=== PATIENT | female | born 1980 | race Caucasian/White ===

== ENCOUNTER 2017-03-30 10:34 | Observation (INO) ==
[2017-03-30] MEDS ORDERED: Nitroglycerin 0.4 MG TAB.SUBL SL ONE (11:06)
[2017-03-30] MEDS ORDERED: Aspirin 81 MG TAB.CHEW PO ONE (11:06)
[2017-03-30 11:28] LABS: Basophils # 0.1 K/mcL (0.0-0.2); Basophils % 1.3 %; Eosinophils # 0.1 K/mcL (0.0-0.6); Eosinophils % 1.6 %; Hematocrit 45.3 % (35.3-44.9); Hemoglobin 15.7 g/dL (11.5-15.4); Immature Granulocytes % 0.1 % (0-4); Lymphocytes # 1.9 K/mcL (0.6-4.6); Lymphocytes % 27.1 %; Mean Corpuscular HGB Conc 34.7 g/dL (31.6-35.5); Mean Corpuscular Hemoglobin 29.8 pg (28.0-33.3); Mean Corpuscular Volume 86.1 fL (83.0-100.0); Mean Platelet Volume 11.4 fL (9.4-12.4); Monocytes # 0.4 K/mcL (0.0-1.3); Monocytes % 6.5 %; Neutrophils # 4.3 K/mcL (1.6-8.9); Platelet Count 264 K/mcL (140-400); Red Blood Count 5.26 M/mcL (3.82-4.97); Red Cell Distribution Width 12.1 % (11.5-14.5); Segmented Neutrophils % 63.4 %
[2017-03-30 11:36] LABS: INR 1.1; Prothrombin Time 11.7 Seconds (9.4-12.1)
[2017-03-30 11:38] LABS: Activated Partial Thrombo Time 28.5 Seconds (26.0-36.0)
[2017-03-30] MEDS ORDERED: 0.9 % Sodium Chloride 500 ML ONE (11:41)
[2017-03-30 11:43] LABS: BUN/Creatinine Ratio 14 (6-26); Blood Urea Nitrogen 13 mg/dL (6-20); Calcium 9.7 mg/dL (8.6-10.3); Carbon Dioxide 26 mEq/L (23-29); Chloride 99 mEq/L (98-107); Glucose 422 mg/dL (70-105); Osmolality,Calculated 292 (280-300); Sodium 132 mEq/L (136-145); eGFR For African Americans > 60 (> 60); eGFR For Non-African Americans > 60 (> 60)
[2017-03-30] MEDS ORDERED: Insulin Regular, Human 100 UNIT/ML IV ONE (12:02)
[2017-03-30] MEDS ORDERED: Insulin Regular, Human 100 UNIT/ML SQ ONE (12:02)
--- NOTE | 2017-03-30 12:02 | Emergency Department Note ---
Disposition Clinical Impression: Chest pain of uncertain etiology Disposition: Admitted As Inpatient Condition: Good Time of Disposition: 12:48 Chest Pain HPI - General Chief Complaint: ED Chest Pain Stated Complaint: CP from shoveling snow Time Seen by Provider: 03/30/17 10:44 Source: patient Limitations: no limitations Vital Signs Reviewed: Yes Nursing Notes Reviewed: Yes - History of Present Illness HPI Narrative: Ms. Lnudberg, 36-year-old female, presents from home for evaluation of chest pain. Described as a substernal squeezing her heart with radiation to her right scapula. She had associated diaphoresis and mild dyspnea. This occurred while she was clearing snow from her car. Onset was 8:30 this morning and persisted until evaluation in this department. Worse with light exertion. At home, she attempted to ignore her symptoms. She spoke with her father who is a mounter clarinets who advised she come to the emergency department for evaluation. PMH: Type 1 diabetes, diagnosed 20 years ago, on insulin pump. Poorly controlled blood glucose with range from 50-500; she is a brittle diabetic. Habits: Current every day smoker Family history: Father had PR in his early 40s with specifics unknown to the patient. ROS: Positive: As above Negative: Fever, chills, nausea, vomiting, abdominal pain, headache, jaw pain, upper extremity weakness or tingling Severity scale (1-10): 0 - Related Data Home Medications Medication Instructions Recorded Confirmed Insulin Pump/Infus. Set/Meter 1 each MC AD 07/20/15 03/30/17 [Accu-Chek Combo System] Levothyroxine Sodium [Synthroid] 137 mcg PO DAILY 07/20/15 03/30/17 Adapalene [Adapalene] 1 appl TP AD 03/30/17 03/30/17 Cholecalciferol (D-3) [Vitamin D] 1,000 unit PO DAILY 03/30/17 03/30/17 Escitalopram [Lexapro] 10 mg PO DAILY 03/30/17 03/30/17 Minocycline HCl [Minocin] 100 mg PO DAILY 03/30/17 03/30/17 Allergies Allergy/AdvReac Type Severity Reaction Status Date / Time codeine Allergy Anxiety Verified 12/01/16 09:44 All systems ED: reviewed and negative except as stated. Review of Systems: As Per HPI Chest Pain PMH - Past Medical History Medical history: Reports: diabetes, renal disease, thyroid disease Surgical history: Reports: , other Psychiatric history: Reports: anxiety, depression - Social History Smoking Status: Current every day smoker Alcohol use: Reports: none Drug use: Reports: none Physical Exam Vital Signs Reviewed General: Patient is alert, oriented, and in no acute distress. HEENT: No facial asymmetry. Head is normocephalic and atraumatic. PERRLA, EOMI. oral mucosa moist. Trachea midline. Cardiovascular: Heart regular rate and rhythm without clicks, rubs, gallops, or murmurs. No JVD. PMI nondisplaced. Lateral radial pulses and posterior tibial pulses 2/4. No pedal edema. Respiratory: Symmetric chest rise with good respiratory effort. Bilateral breath sounds are clear without wheezing, crackles, or rhonchi. Abdomen: Bowel sounds present normoactive x-4 quadrants. Abdomen is soft, nondistended, and nontender. No organomegaly noted. Musculoskeletal: Spontaneously moving all chimneys. Neuro: Alert and oriented 4. Sensation light touch intact. Skin: Warm, dry, intact. Psych: Patient's affect is appropriate for situation. - General Limitations: no limitations General appearance: alert, in no apparent distress Course Course Narrative: Patient's symptoms are concerning in the context of her poorly controlled long- standing type 1 diabetes, chronic smoker, and paternal cardiac history. Her chest pain improved from 09/19-03/22 with subungual nitroglycerin 3. EKG unremarkable for acute ischemic changes. Initial troponin is normal however this was collected approximately 2.5 hours from onset of symptoms. I discussed my concerns with the patient and detailed her cardiac risk factors. She is in agreement to coming into the hospital to rule out acute coronary syndrome. Vital Signs Temperature 98.5 F 03/30/17 10:38 Pulse Rate 101 03/30/17 10:38 Respiratory Rate 18 03/30/17 10:38 Blood Pressure 129/87 03/30/17 10:38 O2 Sat by Pulse Oximetry 100 03/30/17 10:38 Temperature 98.5 F 03/30/17 10:38 Pulse Rate 78 03/30/17 12:11 Respiratory Rate 20 03/30/17 14:01 Blood Pressure 116/79 03/30/17 14:01 O2 Sat by Pulse Oximetry 98 03/30/17 12:11 Oxygen Delivery Oxygen Delivery Room Air Chest Pain - Medical Records Medical records reviewed: Yes I reviewed the patient's medical records. - Lab Data Lab results reviewed: Yes I reviewed the patient's lab results. Result diagrams: 03/30/17 11:20 03/30/17 11:20 Lab Results 03/30/17 03/30/17 03/30/17 Range/Units 11:20 11:20 11:20 WBC 6.8 (4.3-11.1) K/mcL RBC 5.26 H (3.82-4.97) M/mcL Hgb 15.7 H (11.5-15.4) g/dL Hct 45.3 H (35.3-44.9) % MCV 86.1 (83.0-100.0) fL MCH 29.8 (28.0-33.3) pg MCHC 34.7 (31.6-35.5) g/dL RDW 12.1 (11.5-14.5) % Plt Count 264 (140-400) K/mcL MPV 11.4 (9.4-12.4) fL Immature Gran % 0.1 (0-4) % Seg Neutrophils % 63.4 % Lymphocytes % 27.1 % Monocytes % 6.5 % Eosinophils % 1.6 % Basophils % 1.3 % Neutrophils # 4.3 (1.6-8.9) K/mcL Lymphocytes # 1.9 (0.6-4.6) K/mcL Monocytes # 0.4 (0.0-1.3) K/mcL Eosinophils # 0.1 (0.0-0.6) K/mcL Basophils # 0.1 (0.0-0.2) K/mcL PT (9.4-12.1) Seconds INR APTT (26.0-36.0) Seconds Sodium 132 L (136-145) mEq/L Potassium 4.0 (3.5-5.1) mEq/L Chloride 99 (98-107) mEq/L Carbon Dioxide 26 (23-29) mEq/L BUN 13 (6-20) mg/dL Creatinine 0.93 (0.60-1.20) mg/dL Est GFR ( Amer) > 60 (> 60) Est GFR (Non-Af Amer) > 60 (> 60) BUN/Creatinine Ratio 14 (6-26) Glucose 422 H (70-105) mg/dL Calculated Osmolality 292 (280-300) Calcium 9.7 (8.6-10.3) mg/dL Troponin I < 0.03 (< 0.04) ng/mL 03/30/17 Range/Units 11:25 WBC (4.3-11.1) K/mcL RBC (3.82-4.97) M/mcL Hgb (11.5-15.4) g/dL Hct (35.3-44.9) % MCV (83.0-100.0) fL MCH (28.0-33.3) pg MCHC (31.6-35.5) g/dL RDW (11.5-14.5) % Plt Count (140-400) K/mcL MPV (9.4-12.4) fL Immature Gran % (0-4) % Seg Neutrophils % % Lymphocytes % % Monocytes % % Eosinophils % % Basophils % % Neutrophils # (1.6-8.9) K/mcL Lymphocytes # (0.6-4.6) K/mcL Monocytes # (0.0-1.3) K/mcL Eosinophils # (0.0-0.6) K/mcL Basophils # (0.0-0.2) K/mcL PT 11.7 (9.4-12.1) Seconds INR 1.1 APTT 28.5 (26.0-36.0) Seconds Sodium (136-145) mEq/L Potassium (3.5-5.1) mEq/L Chloride (98-107) mEq/L Carbon Dioxide (23-29) mEq/L BUN (6-20) mg/dL Creatinine (0.60-1.20) mg/dL Est GFR ( Amer) (> 60) Est GFR (Non-Af Amer) (> 60) BUN/Creatinine Ratio (6-26) Glucose (70-105) mg/dL Calculated Osmolality (280-300) Calcium (8.6-10.3) mg/dL Troponin I (< 0.04) ng/mL - Radiology Data Radiology results reviewed: Yes I reviewed the patient's radiology results. - EKG Data EKG attestation: Yes I reviewed and interpreted this EKG. EKG results narrative: EKG dated 03/30/17 at 10:47 as sinus rhythm with a rate of 90. Normal intervals. Normal axis. Nonspecific ST T changes. No previous EKG for comparison. Heart Score - Score History: Moderately Suspicious EKG: Non Specific repolarisation Disturbance Age: Less than 45 Risk Factors: Equal/Greater than 3 risk factor or history of atherosclerotic disease Troponin: Less than normal limit HEART Score Total: 4 Attestation Statement - Attestation Attestation: I examined this patient and my medical decision-making was reviewed with the Resident Physician. I agree with the documented findings, disposition and treatment plan as described except to the extent set forth below. 36-year-old female presents to the emergency room because of substernal chest discomfort. At 8:30 this morning she developed abrupt onset of substernal chest discomfort with radiation to her right shoulder. With this she had diaphoresis, nausea and dyspnea. Symptoms improved at rest but worsened sharply she will try to exert. She presents to the ED 2-1/2 hours after onset. Symptoms are still present minus the diaphoresis. She is a poorly controlled diabetic and smokes at least a pack seizure today. Family history significant for father having a myocardial infarction when he was 40 years old. Generally well-appearing female in no apparent physiologic distress. Oropharynx clear, mucous membranes moist. Neck is supple, trachea midline, no JVD. Chest is clear to auscultation bilaterally. Cardiac exam regular without rubs or gallops. Chest wall nontender. Abdomen is soft, nondistended and nontender. Present EKG was unremarkable. Initial metabolic workup including troponin was normal. She was given sublingual nitroglycerin glycerin with resolution of her pain. Given the spectrum of symptoms in addition to her risk factors, she will be admitted for further workup.
--- NOTE | 2017-03-30 14:02 | Internal Med History&Physical ---
Date of Encounter: 03/30/17 Time of Encounter: 14:00 Assessment and Plan (1) Chest pain Current visit: Yes Status: Acute Patient has risk factors for coronary disease including type I diabetes and positive family history. Will admit patient to rule out acute coronary syndrome. Electrocardiogram shows no ST segment shifts. Initial troponin normal. Trend troponin. Start patient and aspirin. Appreciate cardiology input. Qualifiers: Qualified Code(s): R07.9 - Chest pain, unspecified (2) Diabetes mellitus type 1 Current visit: Yes Status: Acute Continue insulin pump. Sugars uncontrolled. Check hemoglobin A-1 C in the morning. Qualifiers: Qualified Code(s): E10.9 - Type 1 diabetes mellitus without complications Internal Medicine - H&P: HPI Chief complaint: chest pain History of present illness: Ms. Lundberg is a 36 year old female with history of type I diabetes mellitus presents to emergency room today with the main complaint of chest pain. Since this morning after the patient was shoveling snow she started experiencing retrosternal chest pain that lasted for several hours so presented to emergency room. She has noticed that pain would improve with sublingual nitroglycerin. She continued to have minimal chest pain during my interview which she rates 1/ 10. Patient denies any prior similar symptoms. Past Med Surg Social Fam HX - Past Medical History Medical history: diabetes, renal disease, thyroid disease Psychiatric history: anxiety, depression - Past Surgical History Surgical History: , other - Social History Smoking Status: Current every day smoker Smokeless Tobacco Status: No Alcohol use: none Drug use: none Internal Medicine - H&P: Meds Insulin Pump/Infus. Set/Meter [Accu-Chek Combo System] 1 each MC AD 07/20/15 [ History] Levothyroxine Sodium [Synthroid] 137 mcg PO DAILY 07/20/15 [History] Adapalene [Adapalene] 1 appl TP AD 03/30/17 [History] Cholecalciferol (D-3) [Vitamin D] 1,000 unit PO DAILY 03/30/17 [History] Escitalopram [Lexapro] 10 mg PO DAILY 03/30/17 [History] Minocycline HCl [Minocin] 100 mg PO DAILY 03/30/17 [History] 3 Allergy/AdvReac Type Severity Reaction Status Date / Time codeine Allergy Anxiety Verified 12/01/16 09:44 All Systems PM: A 10-system review of systems was performed and is negative for pertinent findings except as documented above in the HPI. Review of systems: 10 point review of systems is negative except for HPI - Constitutional Vitals: Temp Pulse Resp BP Pulse Ox 98.5 F 78 12 118/79 98 03/30/17 10:38 03/30/17 12:11 03/30/17 12:11 03/30/17 12:11 03/30/17 12:11 Exam: Gen.: patient is alert oriented times 3 not in distress. Cardiac: normal S1 S2 no additional sounds are murmurs. Chest: clear to auscultation. Abdomen: soft nontender nondistended. Lower extremity no swelling mucous membranes: moist Internal Med - H&P Results - Labs CBC & Chem 7: 03/30/17 11:20 03/30/17 11:20
[2017-03-30] MEDS: INSULIN PUMP MC SCH (17:49)
[2017-03-30] MEDS: INFUS SET MC SCH (17:49)
[2017-03-30] MEDS: Nicotine 14 MG PATCH.TD24 TD SCH (17:50)
[2017-03-30] MEDS: Famotidine 20 MG TABLET PO SCH (21:09)
[2017-03-30] MEDS ORDERED: Acetaminophen 325 MG TABLET PO PRN (21:35)
[2017-03-30] MEDS: ADAPALENE TP SCH (22:41)
[2017-03-31 00:40] LABS: Basophils # 0.1 K/mcL (0.0-0.2); Basophils % 1.6 %; Eosinophils # 0.2 K/mcL (0.0-0.6); Eosinophils % 3.1 %; Hematocrit 37.7 % (35.3-44.9); Immature Granulocytes % 0.1 % (0-4); Lymphocytes # 3.9 K/mcL (0.6-4.6); Lymphocytes % 55.8 %; Mean Corpuscular Hemoglobin 29.8 pg (28.0-33.3); Mean Corpuscular Volume 87.9 fL (83.0-100.0); Mean Platelet Volume 11.8 fL (9.4-12.4); Monocytes # 0.4 K/mcL (0.0-1.3); Monocytes % 5.5 %; Neutrophils # 2.4 K/mcL (1.6-8.9); Platelet Count 240 K/mcL (140-400); Red Blood Count 4.29 M/mcL (3.82-4.97); Red Cell Distribution Width 12.1 % (11.5-14.5); Segmented Neutrophils % 33.9 %
[2017-03-31 00:47] LABS: Hemoglobin A1C 12.1 %
[2017-03-31 01:03] LABS: Chol/HDL Ratio 3.6 (0-4.9)
[2017-03-31 01:04] LABS: BUN/Creatinine Ratio 14 (6-26); Blood Urea Nitrogen 13 mg/dL (6-20); Calcium 9.1 mg/dL (8.6-10.3); Carbon Dioxide 27 mEq/L (23-29); Chloride 101 mEq/L (98-107); Glucose 280 mg/dL (70-105); Magnesium 1.7 mg/dL (1.6-2.6); Osmolality,Calculated 284 (280-300); Potassium 3.9 mEq/L (3.5-5.1); Sodium 132 mEq/L (136-145); eGFR For African Americans > 60 (> 60); eGFR For Non-African Americans > 60 (> 60)
[2017-03-31 01:08] LABS: Hemoglobin 12.8 g/dL (11.5-15.4)
[2017-03-31] MEDS: *HR* Enoxaparin 40 MG/0.4 ML SYRINGE SQ SCH (06:07)
--- NOTE | 2017-03-31 07:39 | Electrocardiograph Report ---
Wayland Mersimo Test Date: 2017-03-30 Pat Name: Miroslava Lundberg Department: 102 Room: [facility] Gender: F Dress Cap Maker: : 1980 Requested By: Elvis Redding Order Number: [id number] Reading MD: Kate Pimentel DO Measurements Intervals [place] Rate: 90 P: 50 NC: 130 QRS: 8 QRSD: 85 T: 40 QT: 336 QTc: 384 Interpretive Statements SINUS RHYTHM Electronically Signed On 03-31-2017 7:37:23 EST by Kate Pimentel DO
[2017-03-31] MEDS: Nicotine 14 MG PATCH.TD24 TD SCH ×2 (07:56→17:26)
[2017-03-31] MEDS: Cholecalciferol (D-3) 1,000 UNIT TABLET PO SCH (07:58)
[2017-03-31] MEDS: Famotidine 20 MG TABLET PO SCH ×2 (07:58→20:15)
[2017-03-31] MEDS ORDERED: D5% in Water 1,000 ML IVC PRN (08:48)
[2017-03-31] MEDS ORDERED: Dextrose Gel 15 GM/37.5 ML TUBE PO PRN ×2 (08:48)
[2017-03-31] MEDS ORDERED: *HR* Dextrose 50 % in Water (Syg) 50 ML SYRINGE IVP PRN (08:48)
[2017-03-31] MEDS ORDERED: Aspirin 325 MG TABLET PO SCH (09:00)
--- NOTE | 2017-03-31 09:27 | Internal Med Progress Note ---
<JohnsonJames - Last Filed: 03/31/17 14:02> Date of Encounter: 03/31/17 Time of Encounter: 09:24 - Assessment and plan (1) Chest pain Current Visit: Yes Status: Acute Assessment and plan: No changes on ECG. Troponin levels not elevated. Likely not cardiac in origin, but patient did have typical symptoms of substernal chest pain worse with exertion and relieved with nitro Stress test and echocardiogram pending Qualifiers: Chest pain type: other chest pain Qualified Code(s): R07.89 - Other chest pain; R07.8 - Other chest pain (2) Diabetes mellitus type 1 Current Visit: Yes Status: Chronic Assessment and plan: A1c of 12, despite having insulin pump medium dose sliding scale insulin added for glucose control Follow with PCP on discharge for glycemic control Qualifiers: Diabetes mellitus complication status: with hyperglycemia Qualified Code(s) : E10.65 - Type 1 diabetes mellitus with hyperglycemia (3) Hypothyroidism Current Visit: Yes Status: Chronic Assessment and plan: Continue with Levothyroxine as prescribed Qualifiers: Qualified Code(s): E03.9 - Hypothyroidism, unspecified (4) Tobacco abuse Current Visit: Yes Status: Chronic Assessment and plan: Tobacco cessation counseling offered. (5) DVT prophylaxis Current Visit: Yes Status: Acute Assessment and plan: Lovenox SQ - Subjective Interval history: Patient is resting comfortably in her bed. She states that she feels much better than yesterday and that her chest pain is now down to a 1-2/10 and that her right subscapular pain is a 4/10. She states that she is comfortable and wants to know if she will have a stress test done. - Constitutional Vitals: Temp Pulse Resp BP Pulse Ox 98.3 F 78 16 97/63 98 03/31/17 06:35 03/31/17 06:35 03/31/17 06:35 03/31/17 06:35 03/31/17 08:01 General appearance: Present: cooperative, A&O X 3, pleasant, no acute distress, answers questions appropriately - Head Head exam: Present: normal inspection - Respiratory Respiratory exam: Present: CTAB - Cardiovascular Cardiovascular exam: Present: RRR, +S1, +S2. Absent: diastolic murmur, gallop, rubs, systolic murmur - GI/Abdominal GI/Abdominal exam: Present: soft. Absent: distended, firm, guarding, tenderness - Back Exam Back exam: Present: normal inspection, tenderness (Mild tenderness to paplapation of right subscapular region) Internal Medicine: Result - Labs CBC & Chem 7: 03/31/17 00:11 03/31/17 00:11 Labs: Short CBC 03/31/17 Range/Units 00:11 WBC 7.0 (4.3-11.1) K/mcL Hgb 12.8 D (11.5-15.4) g/dL Hct 37.7 (35.3-44.9) % Plt Count 240 (140-400) K/mcL Neutrophils # 2.4 (1.6-8.9) K/mcL BMP 03/31/17 00:11 Sodium 132 L Potassium 3.9 Chloride 101 Carbon Dioxide 27 BUN 13 Creatinine 0.90 Glucose 280 H Calcium 9.1 Cardiac Enzymes 03/30/17 03/31/17 Range/Units 17:19 00:11 Troponin I < 0.03 < 0.03 (< 0.04) ng/mL - ABG Interpretation ABG results: PT/INR, D-dimer PT 11.7 Seconds (9.4-12.1) 03/30/17 11:25 Consult Discharge Plan - Plan Referrals: Tiago Hall Jr, MD [Primary Care Provider] - <Salomón Cali - Last Filed: 03/31/17 18:11> Date of Encounter: 03/31/17 - Constitutional Vitals: Temp Pulse Resp BP Pulse Ox 98 F 76 18 105/70 99 03/31/17 16:37 03/31/17 16:37 03/31/17 16:37 03/31/17 16:37 03/31/17 16:37 Internal Medicine: Result - Labs CBC & Chem 7: 03/31/17 00:11 03/31/17 00:11 Labs: Short CBC 03/31/17 Range/Units 00:11 WBC 7.0 (4.3-11.1) K/mcL Hgb 12.8 D (11.5-15.4) g/dL Hct 37.7 (35.3-44.9) % Plt Count 240 (140-400) K/mcL Neutrophils # 2.4 (1.6-8.9) K/mcL BMP 03/31/17 00:11 Sodium 132 L Potassium 3.9 Chloride 101 Carbon Dioxide 27 BUN 13 Creatinine 0.90 Glucose 280 H Calcium 9.1 Cardiac Enzymes 03/31/17 Range/Units 00:11 Troponin I < 0.03 (< 0.04) ng/mL - ABG Interpretation ABG results: PT/INR, D-dimer PT 11.7 Seconds (9.4-12.1) 03/30/17 11:25 - Attending Attestation I conducted a face to face diagnostic evaluation of this patient and my medical decision-making was reviewed with the Resident Physician. I agree with the documented findings, disposition and treatment plan as described except to the extent set forth below: Patient did not tolerate stress test due to hypotension. On exam she is in no acute distress, heart is regular is clear. There is no lower extremity edema. Plan: IV fluids and attempt stress test again tomorrow. Salomón Cali MD
[2017-03-31] MEDS ORDERED: Regadenoson 0.4 MG/5 ML SYRINGE IVP ONE (09:37)
[2017-03-31] MEDS: Insulin LISPRO 300 UNITS/3 ML VIAL SQ SCH ×2 (11:27→17:34)
[2017-03-31] MEDS ORDERED: 0.9 % Sodium Chloride 500 ML IVC ONE (14:03)
[2017-03-31] MEDS ORDERED: 0.9 % Sodium Chloride 1,000 ML IVC ONE (14:17)
[2017-03-31] MEDS: INFUS SET MC SCH (14:33)
[2017-03-31] MEDS: INSULIN PUMP MC SCH (14:33)
[2017-03-31] MEDS ORDERED: Insulin LISPRO 300 UNITS/3 ML VIAL SQ SCH (21:00)
[2017-04-01 03:18] LABS: Basophils # 0.1 K/mcL (0.0-0.2); Basophils % 1.3 %; Eosinophils # 0.2 K/mcL (0.0-0.6); Eosinophils % 3.6 %; Hematocrit 35.4 % (35.3-44.9); Immature Granulocytes % 0.3 % (0-4); Lymphocytes # 3.4 K/mcL (0.6-4.6); Lymphocytes % 50.7 %; Mean Corpuscular HGB Conc 33.9 g/dL (31.6-35.5); Mean Corpuscular Hemoglobin 30.1 pg (28.0-33.3); Mean Corpuscular Volume 88.7 fL (83.0-100.0); Monocytes # 0.4 K/mcL (0.0-1.3); Monocytes % 5.8 %; Neutrophils # 2.6 K/mcL (1.6-8.9); Platelet Count 222 K/mcL (140-400); Red Blood Count 3.99 M/mcL (3.82-4.97); Segmented Neutrophils % 38.3 %
[2017-04-01 03:33] LABS: BUN/Creatinine Ratio 11 (6-26); Blood Urea Nitrogen 10 mg/dL (6-20); Calcium 8.5 mg/dL (8.6-10.3); Carbon Dioxide 25 mEq/L (23-29); Chloride 106 mEq/L (98-107); Glucose 413 mg/dL (70-105); Osmolality,Calculated 295 (280-300); Potassium 4.3 mEq/L (3.5-5.1); Sodium 134 mEq/L (136-145); eGFR For African Americans > 60 (> 60); eGFR For Non-African Americans > 60 (> 60)
[2017-04-01] MEDS ORDERED: Regadenoson 0.4 MG/5 ML SYRINGE IVP ONE (07:16)
[2017-04-01] MEDS ORDERED: Aspirin 81 MG TAB.CHEW PO SCH (09:00)
[2017-04-01] MEDS: ADAPALENE TP SCH (09:14)
[2017-04-01] MEDS: Insulin LISPRO 300 UNITS/3 ML VIAL SQ SCH ×2 (09:15→11:56)
--- NOTE | 2017-04-01 10:16 | Cardiology Consult Note ---
Addendum entered and electronically signed by Tiago Hernandez CNP 04/01/17 11:44 : Resting stress images negative for ischemia as well per Dr. Kendrick. Original Note: <Tiago Hernandez - Last Filed: 04/01/17 11:34> Date of Encounter: 04/01/17 Time of Encounter: 10:00 Assessment and Plan (1) Chest pain Current Visit: Yes Status: Acute Per Cardiology: Develop[facility] symptoms [facility]. Now with atypical chest soreness. Trops negative 3. Echo: Impressions: LVEF 60%. Normal left ventricular diastolic function. Normal right ventricular structure and function. No significant valvular dysfunction. No pulmonary hypertension. Left Ventricular Wall Motion: Rest Echo Findings All wall segments showed normal motion. Patient unable to complete exercise nuclear stress test yesterday, however ECGs showed no signs of ischemia and was able to achieve 10.1 METs. Low level Lexiscan stress test canceled today due to systolic blood pressure 80. I had lengthy discussion with patient regarding potential left heart catheterization, however patient prefers to monitor and observe. Patient is agreeable to follow- up closely in outpatient setting and reevaluate in a few weeks. Can consider possible cardiac CTA, versus attempt at stress test again, versus catheterization if deemed clinically appropriate at that time. Patient verbalized understanding and agreed with plan. Discussed and reviewed with Dr. Kendrick. On asa and statin. Patient needs aggressive risk factor modification particularly with diabetes type 1 and smoking. Qualifiers: Chest pain type: other chest pain Qualified Code(s): R07.89 - Other chest pain; R07.8 - Other chest pain (2) Tobacco abuse Current Visit: Yes Status: Chronic Per Cardiology: Smoking cessation highly encouraged. I did spend 3-5 minutes providing counseling. Has patch ordered. (3) Diabetes mellitus type 1 Current Visit: Yes Status: Chronic Per Cardiology: Has insulin pump. Recent A1c noted to be 12.1. Recent TSH stable. Management per primary service. Qualifiers: Diabetes mellitus complication status: with hyperglycemia Qualified Code(s) : E10.65 - Type 1 diabetes mellitus with hyperglycemia Discussion w patient/family: The assessment and plan as outlined above was discussed with the patient who expressed understanding and agreement. All questions were answered. Thank you for involving us in the care of your patient. Please call with any questions. History of Present Illness Consult date: 04/01/17 Requesting physician: Salomón Cali Consult reason: CP-- Unable to complete stress test Chief complaint: CP History of present illness: Ms. Lundberg is a 36 year old female with relevant past medical history of DM 1 ( on insulin pump), hypothyroidism, and nicotine abuse. She reports she smokes about a half a pack to one pack per day for 18 years. reports possible of dad with [place], but she is unsure. Cardiology consult completed due to inability to complete stress testing due to hypotension. Patient reports over the past one year mild progressive dyspnea on exertion and overall increase in fatigue. She reports no chest pain until the other day with scraping snow off of her car where she developed midsternal prerssure and radiation to her back that lasted for a few hours. Has had intermittent chest soreness since the event. She denied any other symptoms. Seen today during stress test, was ordered for low level nuclear stress test, however cannot be completed due to systolic blood pressure in the low 80s. Past Med Surg Social Fam HX - Past Medical History Attestation: Yes The following information was validated with the patient. Source: patient, old records reviewed Medical history: diabetes, renal disease, thyroid disease Psychiatric history: anxiety, depression - Past Surgical History Surgical History: , other - Social History Smoking Status: Current every day smoker Packs per day: .5-1 Smokeless Tobacco Status: No Alcohol use: none Drug use: none - Family History Mother Hx Family Endocrine Disorder: Yes (DM1) Father Hx Family Cardiac Disorders: Yes (RI?) Hx Family Medical Disorders: Yes (CVA) Medications and Allergies Insulin Pump/Infus. Set/Meter [Accu-Chek Combo System] 1 each MC AD 07/20/15 [ History] Levothyroxine Sodium [Synthroid] 137 mcg PO DAILY 07/20/15 [History] Adapalene [Adapalene] 1 appl TP AD 03/30/17 [History] Cholecalciferol (D-3) [Vitamin D] 1,000 unit PO DAILY 03/30/17 [History] Escitalopram [Lexapro] 10 mg PO DAILY 03/30/17 [History] Minocycline HCl [Minocin] 100 mg PO DAILY 03/30/17 [History] 3 Allergy/AdvReac Type Severity Reaction Status Date / Time codeine Allergy Anxiety Verified 12/01/16 09:44 All Systems Review: A 10-system review of systems was performed and is negative for pertinent findings except as documented above in the HPI. - Constitutional Constitutional: fatigue - Cardiovascular Cardiovascular: as per HPI, chest pain at rest, dyspnea on exertion - Respiratory Respiratory: dyspnea Physical Examination Vital Signs, Last 4 Hours Temp Pulse Resp BP Pulse Ox 04/01/17 07:14 98.0 F 71 14 99/57 95 General: Conversant, No Apparent Distress HEENT: Atraumatic, Normocephaly, Mucus Membranes Moist Neck: No JVD, Normal carotid pulses Cardiac: Reg Rate and Rhythm, Normal S1 and S2, No Murmur Lungs: Normal Breath Sounds, No Wheeze, Rales, Rhonchi Neuro: Alert and responsive, No focal deficits noted Abdomen: Soft, Non-Tender Skin: No rashes noted on visualized skin Musculoskeletal: No Chest Wall Tenderness Extremities: No Clubbing, No Cyanosis, No Edema, Normal Pulses Results 04/01/17 02:53 04/01/17 02:53 Lab Results 04/01/17 04/01/17 02:53 02:53 WBC 6.7 Hgb 12.0 Hct 35.4 Plt Count 222 Sodium 134 L Potassium 4.3 Chloride 106 Carbon Dioxide 25 BUN 10 Creatinine 0.87 Glucose 413 H Calcium 8.5 L - Imaging and Cardiology Stress Test: report reviewed Echo: pending - EKG Interpretation EKG results cardiology: personally reviewed, normal ECG, sinus rhythm, no diagnostic ischemia Consult Discharge Plan - Plan Referrals: Tiago Hall Jr, MD [Primary Care Provider] - <Marta Kendrick - Last Filed: 04/01/17 13:08> Date of Encounter: 04/01/17 - Attending Attestation I examined this patient and my medical decision-making was reviewed with the [employer]. I agree with the documented findings, disposition and treatment plan as described. Impression: Ms. Lundberg is a very pleasant 36-year-old female presenting with atypical chest pain symptoms. Troponins negative, EKG without concerning findings. Echo demonstrated normal LV and RV function without significant valvular dysfunction. Yesterday, patient was unable to complete an exercise nuclear stress test but was still able to achieved 10 mets. Low-level Lexiscan stress test was canceled today due to low blood pressures, systolic 80s. Resting perfusion images were normal. Patient denies recurrent chest pain. PLAN: Risk factors for CAD including type I uncontrolled diabetes and active smoking. Her symptoms are atypical and data so far does not demonstrate any high risk findings. There is no compelling reason to proceed with [facility]. Her symptoms of fatigue may be related to low blood pressures. We've recommended increasing hydration, liberation of salt intake, use of compression stockings and caution when changing positions. Alternatively, we could consider Cardiac CTA as outpatient if symptoms do not resolve. Patient is in agreement with this plan. She declines proceeding with an invasive strategy. Smoking cessation was strongly encouraged. We will sign off. We will arrange follow up. Please call with questions. Assessment and Plan Discussion w patient/family: The assessment and plan as outlined above was discussed with the patient and/or family members who expressed understanding and agreement. All questions were answered. Thank you for involving us in the care of your patient. Please call with any questions. History of Present Illness History of present illness: Ms. Lundberg is a 36 year old female All Systems Review: A 10-system review of systems was performed and is negative for pertinent findings except as documented above in the HPI. Physical Examination Vital Signs, Last 4 Hours Temp Pulse Resp BP Pulse Ox 04/01/17 12:04 97.9 F 74 14 117/81 98 Results 04/01/17 02:53 04/01/17 02:53 Lab Results 04/01/17 04/01/17 02:53 02:53 WBC 6.7 Hgb 12.0 Hct 35.4 Plt Count 222 Sodium 134 L Potassium 4.3 Chloride 106 Carbon Dioxide 25 BUN 10 Creatinine 0.87 Glucose 413 H Calcium 8.5 L
[2017-04-01] MEDS: Nicotine 14 MG PATCH.TD24 TD SCH (10:58)
[2017-04-01] MEDS: Famotidine 20 MG TABLET PO SCH (11:00)
[2017-04-01] MEDS: Cholecalciferol (D-3) 1,000 UNIT TABLET PO SCH (11:01)
[2017-04-01] MEDS: *HR* Enoxaparin 40 MG/0.4 ML SYRINGE SQ SCH (11:01)
[2017-04-01] MEDS ORDERED: Insulin LISPRO 300 UNITS/3 ML VIAL SQ ONE (11:46)
[2017-04-01] MEDS: INFUS SET MC SCH (14:52)
[2017-04-01] MEDS: INSULIN PUMP MC SCH (14:52)
[2017-04-01 16:35] VITALS: BP 99/64
--- NOTE | 2017-04-01 16:54 | Discharge Summary ---
Date of Encounter: 04/01/17 Time of Encounter: 16:52 - Discharge Diagnosis (1) Chest pain Priority: Primary Status: Acute Qualifiers: Chest pain type: precordial pain Qualified Code(s): R07.2 - Precordial pain (2) Diabetes mellitus type 1 Priority: Secondary Status: Chronic Qualifiers: Diabetes mellitus complication status: with hyperglycemia Qualified Code(s) : E10.65 - Type 1 diabetes mellitus with hyperglycemia (3) Hypothyroidism Priority: Secondary Status: Chronic Qualifiers: Hypothyroidism type: unspecified Qualified Code(s): E03.9 - Hypothyroidism , unspecified (4) Tobacco abuse Priority: Secondary Status: Chronic - Discharge Medications Home Medications: Insulin Pump/Infus. Set/Meter [Accu-Chek Combo System] 1 each MC AD 07/20/15 [ History] Levothyroxine Sodium [Synthroid] 137 mcg PO DAILY 07/20/15 [History] Adapalene 1 appl TP AD 03/30/17 [History] Cholecalciferol (D-3) [Vitamin D] 1,000 unit PO DAILY 03/30/17 [History] Escitalopram [Lexapro] 10 mg PO DAILY 03/30/17 [History] Minocycline HCl [Minocin] 100 mg PO DAILY 03/30/17 [History] Allergies/Adverse Reactions: 3 Allergy/AdvReac Type Severity Reaction Status Date / Time codeine Allergy Anxiety Verified 12/01/16 09:44 Procedures/tests Complete & Pending: Procedures Performed prior 72 hours Category Date Time Status NM jordan perf SPECT single [NM] Routine Exams 03/31/17 09:34 Taken EV echocardiogram Routine Y 03/31/17 11:57 Completed SP exercise nuclear stress Routine Y 03/31/17 09:33 Completed SP exercise stress ECG Routine Y 03/31/17 Completed Date of admission: 03/30/17 13:46 Primary care physician: Tiago Hall Jr, MD - Patient Status Disposition: Home, Self-Care Condition: Good Functional capacity at discharge: independent ambulation Overall status at discharge: patient is back to baseline - Discharge Instructions Follow Up With: Tiago Hall Jr, MD [Primary Care Provider] - Additional Instructions: Follow-up with cardiology in 2 weeks of discharge. Refrain from smoking tobacco products. Return to the hospital if you have recurrent chest pain, passing out spells, palpitations or unusual shortness of breath. Keep good oral hydration. Follow-up with an binding end stitcher regarding your diabetes control. - Diet and Activity Activity: increase activity as tolerated Diet: diabetic diet Hospital course: Ms. Lundberg is a 36 year old female with past medical history significant for uncontrolled type 1 diabetes and tobacco abuse who presented to the hospital for evaluation of chest pain. Her initial EKG was unremarkable. Serial troponins were negative. She was scheduled to have an exercise stress test however after exercise heart rate increased to 150 but her blood pressure dropped to 70 systolic which precluded the test. She was given IV fluids and her blood pressure improved. Today she was evaluated by cardiology and based on resting images and echocardiogram as well as telemetry data and troponin levels she was found to be safe for discharge home with close outpatient follow- up. She would benefit from outpatient stress test versus coronary artery CT. I strongly advised smoking cessation and provided counseling. Advised the patient returns to the hospital if she continues to have chest pain, lightheadedness palpitations feeling faint, passing out spells. She verbalized understanding and agreement with the plan. - Time Spent with Patient Total time spent providing and/or coordinating discharge services: - Constitutional Vitals: Temp Pulse Resp BP Pulse Ox 97.8 F 79 14 99/64 100 04/01/17 16:35 04/01/17 16:35 04/01/17 16:35 04/01/17 16:35 04/01/17 16:35 General appearance: Present: cooperative, A&O X 3, pleasant, no acute distress, answers questions appropriately - Respiratory Respiratory exam: Present: CTAB. Absent: accessory muscle use, rales, rhonchi, wheezes - Cardiovascular Cardiovascular exam: Present: RRR, +S1, +S2. Absent: diastolic murmur, gallop, rubs, systolic murmur
== END 2017-04-01 17:00 | disposition home or self-care (01) ==
LOC: EMEROO 10:34 → 3NENU 10:34 → SUATTDRO 13:46 → 3NENU 14:10
PROVIDERS: ADMIT Hospitalist; ATTEND Internal Medicine

== ENCOUNTER 2020-05-06 06:39 | Observation (INO) ==
[2020-05-06] MEDS ORDERED: 0.9 % Sodium Chloride 1,000 ML IVC ONE ×2 (06:51→09:48)
[2020-05-06] MEDS ORDERED: *HR* Promethazine 25 MG/ML VIAL IM ONE (06:51)
[2020-05-06] MEDS ORDERED: Ondansetron 4 MG/2 ML VIAL IVP ONE ×2 (07:16→09:14)
[2020-05-06 07:20] LABS: Basophils # 0.1 K/mcL (0.0-0.2); Basophils % 0.6 %; Eosinophils # 0.1 K/mcL (0.0-0.6); Eosinophils % 0.8 %; Hematocrit 40.4 % (35.3-44.9); Immature Granulocytes % 0.4 % (0-4); Lymphocytes # 1.7 K/mcL (0.6-4.6); Mean Corpuscular HGB Conc 34.7 g/dL (31.6-35.5); Mean Corpuscular Hemoglobin 29.4 pg (28.0-33.3); Mean Corpuscular Volume 84.9 fL (83.0-100.0); Mean Platelet Volume 11.6 fL (9.4-12.4); Monocytes # 0.6 K/mcL (0.0-1.3); Monocytes % 4.1 %; Neutrophils # 12.8 K/mcL (1.6-8.9); Platelet Count 329 K/mcL (140-400); Red Blood Count 4.76 M/mcL (3.82-4.97); Red Cell Distribution Width 11.9 % (11.5-14.5); Segmented Neutrophils % 83.1 %; White Blood Count 15.5 K/mcL (4.3-11.1)
[2020-05-06 07:25] LABS: VBG HCO3 17 mEq/L (21-27); VBG PCO2 27 mmHg (41-51); VBG PO2 101 mmHg (25-50)
[2020-05-06 07:53] LABS: Alanine Aminotransferase 32 Units/L (7-52); Albumin 4.3 g/dL (3.5-5.7); Albumin/Globulin Ratio 1.2 (1.1-2.2); Alkaline Phosphatase 116 Units/L (34-104); Aspartate Amino Transferase 25 Units/L (13-39); BUN/Creatinine Ratio 17 (6-26); Bilirubin,Total 0.8 mg/dL (0.3-1.0); Blood Urea Nitrogen 17 mg/dL (6-20); Calcium 10.2 mg/dL (8.6-10.3); Carbon Dioxide 15 mEq/L (23-29); Chloride 96 mEq/L (98-107); Globulin 3.5 g/dL (2.4-3.5); Glucose 539 mg/dL (70-105); Lipase 6 Units/L (11-82); Osmolality,Calculated 300 (280-300); Potassium 4.2 mEq/L (3.5-5.1); Sodium 132 mEq/L (136-145); Total Protein 7.8 g/dL (6.4-8.9); Troponin I < 0.03 ng/mL (< 0.04); eGFR For African Americans > 60 (> 60); eGFR For Non-African Americans > 60 (> 60)
[2020-05-06] MEDS ORDERED: Insulin Regular, Human 100 UNIT/ML IV PRN (09:58)
[2020-05-06] MEDS ORDERED: D5% in 0.45% NACL w KCl 20 MEQ/1,000 ML MLS IVC PRN (09:58)
[2020-05-06] MEDS ORDERED: D5% in 0.45% NACL 1,000 ML IVC PRN (09:58)
[2020-05-06] MEDS ORDERED: *HR* Dextrose 50 % in Water (Vial) 50 ML VIAL IVP PRN (09:58)
[2020-05-06] MEDS ORDERED: Insulin Human Regular 100 UNIT in 0.9 % Sodium Chloride 100 ML IVC SCH ×2 (10:00→15:15)
[2020-05-06] MEDS ORDERED: 0.9 % Sodium Chloride w KCl 20 MEQ/1,000 ML MLS IVC SCH (10:00)
[2020-05-06 10:17] LABS: Magnesium 1.4 mg/dL (1.6-2.6); Phosphorous 3.7 mg/dL (2.7-4.5)
[2020-05-06] MEDS ORDERED: Ondansetron 4 MG/2 ML VIAL IVP PRN (10:22)
[2020-05-06] MEDS ORDERED: Ketorolac 15 MG/ML VIAL IVP PRN (10:22)
[2020-05-06] MEDS ORDERED: Naloxone 0.4 MG/ML INJ IVP PRN (10:22)
[2020-05-06 11:24] LABS: Thyroid Stimulating Hormone 0.019 mcIU/mL (0.340-5.600)
[2020-05-06] MEDS: 0.45 % Sodium Chloride w/KCl 20 MEQ/1,000 ML MLS IVC SCH ×2 (12:30→14:54)
[2020-05-06 13:55] LABS: VBG HCO3 19 mEq/L (21-27); VBG PCO2 45 mmHg (41-51); VBG PH 7.24 pH Units (7.32-7.42); VBG PO2 149 mmHg (25-50)
[2020-05-06 14:13] LABS: BUN/Creatinine Ratio 18 (6-26); Blood Urea Nitrogen 17 mg/dL (6-20); Calcium 9.4 mg/dL (8.6-10.3); Carbon Dioxide 17 mEq/L (23-29); Chloride 106 mEq/L (98-107); Glucose 286 mg/dL (70-105); Osmolality,Calculated 298 (280-300); Potassium 4.1 mEq/L (3.5-5.1); Sodium 138 mEq/L (136-145); eGFR For African Americans > 60 (> 60); eGFR For Non-African Americans > 60 (> 60)
[2020-05-06 15:10] LABS: Troponin I < 0.03 ng/mL (< 0.04)
[2020-05-06 16:01] VITALS: BP 118/56
[2020-05-06] MEDS ORDERED: Nitroglycerin 0.4 MG TAB.SUBL SL PRN (16:41)
[2020-05-06 17:29] LABS: VBG HCO3 21 mEq/L (21-27); VBG PCO2 43 mmHg (41-51); VBG PH 7.29 pH Units (7.32-7.42); VBG PO2 152 mmHg (25-50)
[2020-05-06 17:49] LABS: BUN/Creatinine Ratio 17 (6-26); Blood Urea Nitrogen 15 mg/dL (6-20); Calcium 8.9 mg/dL (8.6-10.3); Carbon Dioxide 19 mEq/L (23-29); Chloride 108 mEq/L (98-107); Glucose 184 mg/dL (70-105); Osmolality,Calculated 286 (280-300); Potassium 4.1 mEq/L (3.5-5.1); Sodium 135 mEq/L (136-145); eGFR For African Americans > 60 (> 60); eGFR For Non-African Americans > 60 (> 60)
[2020-05-06] MEDS ORDERED: *HR* Heparin 5,000 UNIT/ML VIAL SQ SCH (18:00)
[2020-05-06] MEDS ORDERED: Insulin DETEMIR 100 UNIT/ML X5UNITS SUBQ ONE (18:02)
[2020-05-06] MEDS ORDERED: Venlafaxine XR (24 HR) 75 MG CAP.ER.24H PO SCH (18:15)
[2020-05-07] MEDS ORDERED: MINOCYCLINE HCL 100 MG PO SCH (09:00)
[2020-05-07] MEDS ORDERED: Venlafaxine XR (24 HR) 75 MG CAP.ER.24H PO SCH (09:00)
== END 2020-05-06 19:45 | disposition left against medical advice (07) ==
LOC: 2NNU 06:39 → EMEROOARM 06:39 → 2NNU 10:48
PROVIDERS: ADMIT Internal Medicine; ATTEND Internal Medicine

== ENCOUNTER 2021-07-05 08:25 | Observation (INO) ==
[~2021-07-05 08:25] MED LIST: Famotidine 20 MG/2 ML VIAL IVP ONE; Ringers Solution, Lactated 1,000 ML IVC ONE
[2021-07-05] MEDS ORDERED: 0.9 % Sodium Chloride 500 ML IVC ONE (09:18)
[2021-07-05] MEDS ORDERED: *HR* Propofol 200 MG/20 ML VIAL IVP ONE ×2 (09:19→17:50)
[2021-07-05] MEDS ORDERED: Ketamine *HR* 500 MG/10 ML MDV IVP ONE (09:19)
[2021-07-05] MEDS ORDERED: Ketamine HCL *QUVA* 50mg (1mL) SYRINGE ONE (09:44)
[2021-07-05] MEDS ORDERED: Isovue-370 500 ML BOTTLE IVP ONE (10:26)
[2021-07-05] MEDS ORDERED: Naloxone 0.4 MG/ML INJ IVP PRN (11:01)
[2021-07-05 11:22] LABS: Basophils # 0.1 K/mcL (0.0-0.2); Basophils % 0.6 %; Eosinophils # 0.2 K/mcL (0.0-0.6); Eosinophils % 2.1 %; Hematocrit 38.9 % (35.3-44.9); Hemoglobin 13.4 g/dL (11.5-15.4); Immature Granulocytes % 0.3 % (0-4); Lymphocytes # 1.8 K/mcL (0.6-4.6); Lymphocytes % 18.5 %; Mean Corpuscular HGB Conc 34.4 g/dL (31.6-35.5); Mean Corpuscular Hemoglobin 30.2 pg (28.0-33.3); Mean Corpuscular Volume 87.8 fL (83.0-100.0); Mean Platelet Volume 11.6 fL (9.4-12.4); Monocytes # 0.6 K/mcL (0.0-1.3); Monocytes % 5.6 %; Neutrophils # 7.1 K/mcL (1.6-8.9); Platelet Count 300 K/mcL (140-400); Red Blood Count 4.43 M/mcL (3.82-4.97); Segmented Neutrophils % 72.9 %; White Blood Count 9.8 K/mcL (4.3-11.1)
[2021-07-05 11:29] LABS: Prothrombin Time 11.4 Seconds (9.4-12.1)
[2021-07-05] MEDS ORDERED: INSULIN PUMP CARTRIDGE SQ SCH (11:30)
[2021-07-05 11:32] LABS: Activated Partial Thrombo Time 31.7 Seconds (26.0-36.0)
[2021-07-05 11:58] LABS: Alanine Aminotransferase 26 Units/L (7-52); Albumin/Globulin Ratio 1.4 (1.1-2.2); Alkaline Phosphatase 107 Units/L (34-104); Aspartate Amino Transferase 30 Units/L (13-39); BUN/Creatinine Ratio 10 (6-26); Bilirubin,Total 0.3 mg/dL (0.3-1.0); Blood Urea Nitrogen 10 mg/dL (6-20); Calcium 9.7 mg/dL (8.6-10.3); Carbon Dioxide 23 mEq/L (23-29); Chloride 102 mEq/L (98-107); Creatine Kinase 110 Units/L (30-223); Globulin 2.9 g/dL (2.4-3.5); Glucose 415 mg/dL (70-105); Osmolality,Calculated 293 (280-300); Potassium 4.6 mEq/L (3.5-5.1); Sodium 133 mEq/L (136-145); Total Protein 6.9 g/dL (6.4-8.9); eGFR For African Americans > 60 (> 60); eGFR For Non-African Americans > 60 (> 60)
[2021-07-05 12:45] LABS: Estimated Average Glucose 278 mg/dl; Hemoglobin A1C 11.3 %
[2021-07-05] MEDS ORDERED: Ondansetron 4 MG/2 ML VIAL IVP PRN (15:44)
[2021-07-05] MEDS ORDERED: *HR* Succinylcholine 200 MG/10 ML VIAL IVP ONE (17:49)
[2021-07-05] MEDS ORDERED: Ondansetron 4 MG/2 ML VIAL ONE (17:49)
[2021-07-05] MEDS ORDERED: *HR* FentaNYL (PF) 100 MCG/2 ML VIAL ONE (17:49)
[2021-07-05] MEDS ORDERED: Lidocaine -MPF 2% 2 ML VIAL ONE ×2 (17:49→17:52)
[2021-07-05] MEDS ORDERED: *HR* Midazolam HCl 2 MG/2 ML VIAL ONE (17:49)
[2021-07-05] MEDS ORDERED: Acetaminophen IV 1,000 MG/100 ML BAG IVPB ONE (19:44)
[2021-07-05] MEDS ORDERED: Ketorolac 30 MG/ML VIAL ONE (20:01)
[2021-07-05] MEDS ORDERED: *HR* HYDROMORPHONE 2 MG/ML VIAL ONE (20:56)
[2021-07-06] MEDS ORDERED: Ringers Solution, Lactated 1,000 ML IVC ONE (00:32)
[2021-07-06] MEDS ORDERED: INSULIN PUMP CARTRIDGE SQ SCH (00:32)
[2021-07-06] MEDS ORDERED: Naloxone 0.4 MG/ML INJ IVP PRN (00:32)
[2021-07-06] MEDS ORDERED: Isovue-370 500 ML BOTTLE IVP ONE (00:32)
[2021-07-06 07:10] LABS: Basophils % 0.2 %; Hematocrit 36.6 % (35.3-44.9); Hemoglobin 12.4 g/dL (11.5-15.4); Immature Granulocytes % 0.3 % (0-4); Lymphocytes % 8.3 %; Mean Corpuscular HGB Conc 33.9 g/dL (31.6-35.5); Mean Corpuscular Hemoglobin 30.2 pg (28.0-33.3); Mean Corpuscular Volume 89.3 fL (83.0-100.0); Mean Platelet Volume 11.6 fL (9.4-12.4); Monocytes # 0.4 K/mcL (0.0-1.3); Platelet Count 288 K/mcL (140-400); Red Cell Distribution Width 12.2 % (11.5-14.5); Segmented Neutrophils % 88.2 %; White Blood Count 12.5 K/mcL (4.3-11.1)
[2021-07-06 07:34] LABS: BUN/Creatinine Ratio 10 (6-26); Blood Urea Nitrogen 10 mg/dL (6-20); Calcium 9.4 mg/dL (8.6-10.3); Carbon Dioxide 25 mEq/L (23-29); Chloride 100 mEq/L (98-107); Glucose 253 mg/dL (70-105); Osmolality,Calculated 286 (280-300); Potassium 4.4 mEq/L (3.5-5.1); Sodium 134 mEq/L (136-145); eGFR For African Americans > 60 (> 60); eGFR For Non-African Americans > 60 (> 60)
[2021-07-06] MEDS ORDERED: Venlafaxine XR (24 HR) 75 MG CAP.ER.24H PO SCH ×2 (09:00)
[2021-07-06] MEDS ORDERED: Cholecalciferol (D-3) 1,000 UNIT (25MCG) TABLET PO SCH ×2 (09:00)
[2021-07-06] MEDS ORDERED: Aspirin Enteric Coated 81 MG Tablet PO SCH ×2 (09:00)
[2021-07-06] MEDS ORDERED: Furosemide 20 MG TABLET PO SCH ×2 (09:00)
[2021-07-06] MEDS ORDERED: Sulfamethoxazole/Trimeth DS 1 EACH TABLET PO SCH (11:15)
[2021-07-06 11:52] VITALS: BP 142/80; PULSE 88; TEMP 98.3; O2SAT 96
== END 2021-07-06 16:30 | disposition home health service (06) ==
LOC: 4WAOSI 08:25 → EMEROOARM 08:25 → 4WAOSI 11:58
PROVIDERS: ADMIT Internal Medicine; ATTEND Internal Medicine